=== PATIENT | male | born 1975 | race Caucasian/White ===

== ENCOUNTER 2018-12-19 07:19 | Emergency (ER) | payer OTHER, BC ==
[2018-12-19] MEDS ORDERED: DIAZEPAM INJ 10 MG/2 ML DISP.SYRIN IV ONE (07:40)
[2018-12-19] MEDS ORDERED: KETOROLAC TROMETHAMINE INJ/PF 30 MG/1 ML SDV IV ONE (07:40)
--- NOTE | 2018-12-19 07:59 | ER Document Report ---
ED Neck/Back Problem - General Chief Complaint: Back Pain Stated Complaint: BACK PAIN Time Seen by Provider: 12/19/18 07:40 TRAVEL OUTSIDE OF THE [place] IN LAST 30 DAYS: No - HPI Notes: This is a 43-year-old gentleman who presents today with a complaint of mid to lower back pain. Patient describes pain that started this morning. Patient states that he had trouble walking to the bathroom but he was able to manage to do that. On his way back, his pain got worse. Patient describes back spasms also. He denies any bowel or bladder incontinence. He denies any paresthesias. He denies any trauma. Patient notes that he had a similar episode about 2 years ago. At that time, he had imaging that showed that he has some herniated disks. He underwent some physical therapy for these because he was told that surgery may not help. He denies any fever or chills. Describes the symptoms as moderate. Patient was given fentanyl by EMS with some improvement of his pain. - Related Data Allergies/Adverse Reactions: No Known Allergies Allergy (Verified 06/04/15 05:16) Past Medical History - Social History Smoking Status: Unknown if Ever Smoked Frequency of alcohol use: None Drug Abuse: None Family History: Reviewed & Not Pertinent Patient has suicidal ideation: No Patient has homicidal ideation: No - Past Medical History Cardiac Medical History: Reports: Hx Hypercholesterolemia, Hx Hypertension - Immunizations Hx Diphtheria, Pertussis, Tetanus Vaccination: Yes Review of Systems - Review of Systems Cardiovascular: denies: Chest pain Gastrointestinal: denies: Abdominal pain, Vomiting, Constipation Musculoskeletal: Back pain, Muscle pain Neurological/Psychological: denies: Numbness, Tingling -: Yes All other systems reviewed and negative Physical Exam - Vital signs Vitals: Temp Pulse Resp BP Pulse Ox 98.6 F 71 16 121/88 H 98 12/19/18 07:30 12/19/18 07:30 12/19/18 07:30 12/19/18 07:30 12/19/18 07:30 - General General appearance: Appears well, Alert - Respiratory Respiratory status: No respiratory distress Chest status: Nontender Breath sounds: Normal Chest palpation: Normal - Cardiovascular Rhythm: Regular Heart sounds: Normal auscultation Murmur: No - Abdominal Inspection: Normal Distension: No distension Bowel sounds: Normal Tenderness: Nontender Organomegaly: No organomegaly - Back Back: Normal, Tender, Vertebra tenderness - There is some paravertebral tenderness and spasms in the lower thoracic and upper lumbar area. No step- offs. No saddle anesthesia. There is pain with a straight leg raise, but it is limited to the back.. No: Deformity/step-off, CVA tenderness Course - Re-evaluation Re-evalutation: 12/19/18 07:59 Differential diagnosis includes lumbar strain versus disc disease versus muscle spasms. There is no clinical suspicion for acute cord compression. There is no indication for emergent MRI. We will get plain films to evaluate disks given patient's history of disc herniation. 12/19/18 10:40 Patient reevaluated. Patient is doing better. X-rays reviewed and discussed. He is stable for discharge. - Vital Signs Vital signs: Temp Pulse Resp BP Pulse Ox 98.6 F 71 16 121/88 H 98 12/19/18 07:30 12/19/18 07:30 12/19/18 07:30 12/19/18 07:30 12/19/18 07:30 Discharge - Discharge Clinical Impression: Back pain Qualifiers: Back pain location: low back pain Chronicity: acute Back pain laterality: unspecified Sciatica presence: without sciatica Qualified Code(s): M54.5 - Low back pain DJD (degenerative joint disease), lumbar Qualifiers: Spinal osteoarthritis complication: unspecified spinal osteoarthritis Qualified Code(s): M47.816 - Spondylosis without myelopathy or radiculopathy, lumbar region Condition: Good Disposition: HOME, SELF-CARE Instructions: Low Back Pain ([facility]) Additional Instructions: Follow-up with your doctor. Return if worse or concerns. Prescriptions: Naproxen 500 mg PO BID PRN #14 tablet PRN Reason: Oxycodone HCl/Acetaminophen [Percocet 5-325 mg Tablet] 1 - 2 tab PO Q4H PRN #25 tablet PRN Reason: Methocarbamol [Robaxin 500 mg Tablet] 500 mg PO BID PRN 10 Days #20 tablet PRN Reason: muscle spasm
[2018-12-19] MEDS ORDERED: HYDROMORPHONE HCL INJ/PF 2 MG/ML AMPULE IV STA (09:34)
--- NOTE | 2018-12-19 09:46 | RADIOLOGY REPORT (SQ) ---
EXAM DESCRIPTION: T SPINE AP/LAT COMPLETED DATE/TIME: 12/19/2018 8:43 am REASON FOR STUDY: back pain COMPARISON: Lumbar spine films same date NUMBER OF VIEWS: Two views. TECHNIQUE: AP and lateral radiographic images acquired of the thoracic spine. LIMITATIONS: None. FINDINGS: MINERALIZATION: Normal. ALIGNMENT: Normal. No scoliosis. VERTEBRAE: No fracture or bone lesion. Maintained height, normal segmentation. DISCS: Mild diffuse disc space loss of height. No large osteophytes. HARDWARE: None in the spine. MEDIASTINUM AND SOFT TISSUES: Normal heart size and aortic contour. No soft tissue abnormality. VISUALIZED LUNG COCHRAN: Clear. OTHER: No other significant finding. IMPRESSION: No acute fracture or malalignment. Mild diffuse disc space loss height TECHNICAL DOCUMENTATION: JOB ID: [id number] [employer]- All Rights Reserved Reading location - IP/workstation name: [email or web address]
--- NOTE | 2018-12-19 09:47 | RADIOLOGY REPORT (SQ) ---
EXAM DESCRIPTION: L SPINE WHOLE COMPLETED DATE/TIME: 12/19/2018 8:43 am REASON FOR STUDY: back pain COMPARISON: None. NUMBER OF VIEWS: Five views including obliques. TECHNIQUE: AP, lateral, oblique, and sacral radiographic images acquired of the lumbar spine. LIMITATIONS: Limited penetration on lateral view FINDINGS: MINERALIZATION: Normal. SEGMENTATION: Normal. No transitional anatomy. ALIGNMENT: Normal. VERTEBRAE: Maintained height. No fracture or worrisome bone lesion. DISCS: Preserved height. No significant osteophytes or end plate irregularity. POSTERIOR ELEMENTS: Pedicles and facets are intact. No pars defect or posterior arch defects. Mild bilateral facet arthropathy at L4-5 and L5-S1 HARDWARE: None in the spine. PARASPINAL SOFT TISSUES: Normal. PELVIS: SI joints intact. OTHER: No other significant finding. IMPRESSION: Mild lower lumbar facet arthropathy TECHNICAL DOCUMENTATION: JOB ID: [id number] [employer]- All Rights Reserved Reading location - IP/workstation name: [email or web address]
[2018-12-19 12:00] VITALS: BP 104/60
== END 2018-12-19 12:00 | disposition home or self-care (01) ==
LOC: ER 07:19
DX: M47.816 Spondylosis without myelopathy or radiculopathy, lumbar region (principal); R25.2 Cramp and spasm; I10 Essential (primary) hypertension
CPT/HCPCS: 72110; 72070; J3360; J1885; J1170; 96374; 96375; 99283